=== PATIENT | female | born 1940 | race Caucasian/White ===

== ENCOUNTER 2017-07-17 06:29 | Day surgery (SDC) | payer OTHER | END 2017-07-17 10:29 | disposition home or self-care (01) | LOC: AMB-ENDOS 06:29 | DX: D12.3 Benign neoplasm of transverse colon (principal); K64.8 Other hemorrhoids; Z12.11 Encounter for screening for malignant neoplasm of colon; K57.30 Diverticulosis of large intestine without perforation or abscess without bleeding ==